=== PATIENT | male | born 1965 | race Caucasian/White ===

== ENCOUNTER 2021-10-10 09:13 | Outpatient (CLI) | payer OTHER, SELFPAY | END 2021-10-10 09:14 | disposition home or self-care (01) | LOC: RAD 09:14 | PROVIDERS: PCP Family Medicine; Visit Provider Family Medicine | DX: M54.16 Radiculopathy, lumbar region (principal); M51.36 Other intervertebral disc degeneration, lumbar region; M48.061 Spinal stenosis, lumbar region without neurogenic claudication | CPT/HCPCS: 64483; Q9966 ==

== ENCOUNTER 2022-10-30 08:23 | Outpatient (CLI) | payer OTHER, SELFPAY | END 2022-10-30 08:24 | disposition home or self-care (01) | LOC: INJ CL 08:24 | PROVIDERS: PCP Family Medicine; Visit Provider Family Medicine | DX: M54.16 Radiculopathy, lumbar region (principal); M51.36 Other intervertebral disc degeneration, lumbar region | CPT/HCPCS: 62323; J0702; Q9966 ==

== ENCOUNTER 2024-01-14 10:42 | Outpatient (CLI) | payer OTHER, SELFPAY | END 2024-01-14 10:43 | disposition home or self-care (01) | LOC: INJ CL 10:43 | PROVIDERS: PCP Family Medicine; Visit Provider Family Medicine | DX: M54.16 Radiculopathy, lumbar region (principal); M51.369 Other intervertebral disc degeneration, lumbar region without mention of lumbar back pain or lower extremity pain | CPT/HCPCS: 62323; J0702; Q9966 ==

== ENCOUNTER 2024-08-25 07:02 | Outpatient (CLI) | payer OTHER, SELFPAY | END 2024-08-25 07:03 | disposition home or self-care (01) | LOC: INJ CL 07:05 | PROVIDERS: PCP Family Medicine; Visit Provider Family Medicine | DX: M54.16 Radiculopathy, lumbar region (principal); M51.26 Other intervertebral disc displacement, lumbar region; M51.369 Other intervertebral disc degeneration, lumbar region without mention of lumbar back pain or lower extremity pain | CPT/HCPCS: 62323; J0702; Q9966 ==